=== PATIENT | female | born 1960 | race Caucasian/White ===

== ENCOUNTER 2023-03-14 08:18 | Outpatient (RCR) | payer BC, SELFPAY | END 2023-03-29 10:19 | disposition home or self-care (01) | PROVIDERS: Visit Provider Orthopaedic Surgery | DX: M17.11 Unilateral primary osteoarthritis, right knee (principal); M25.561 Pain in right knee; Z96.651 Presence of right artificial knee joint; Z51.89 Encounter for other specified aftercare; R53.1 Weakness | CPT/HCPCS: 97110; 97161 ==

== ENCOUNTER 2023-03-22 06:49 | Day surgery (SDC) | payer BC, SELFPAY ==
[2023-03-22] VITALS (27 sets, daily range): BP systolic 106–155; BP diastolic 53–90; PULSE 49–66; RESP 12–20; TEMP 36.3–36.8; O2SAT 93–98; BMI 45.2
[2023-03-22] MEDS: SCOPOLAMINE 1 MG/3 DAY PATCH 1 PATCH TRANSDERMA (07:25)
[2023-03-22] MEDS: LACTATED RINGERS 1000 ML 1,000 ML 100 ML IV ×2 (08:00→10:18)
[2023-03-22] MEDS: SODIUM CHLORIDE 0.9 % (FLUSH) 10 ML SYRINGE IVF (08:08)
[2023-03-22] MEDS: CELECOXIB 200 MG CAPSULE PO (08:13)
[2023-03-22] MEDS: ACETAMINOPHEN 500 MG TABLET 1000 MG PO ×3 (08:13→20:31)
[2023-03-22] MEDS: OXYCODONE (CR) 10 MG TAB.ER.12H PO (08:13)
[2023-03-22] MEDS: fentaNYL 100 MCG/2 ML inj IVP (08:35)
[2023-03-22] MEDS: MIDAZOLAM HCL 1 MG/ML inj IVP (08:35)
--- NOTE | 2023-03-22 08:39 | SUR.PREOP ---
TIME?OUT:?0830 right knee PT/RN/MDA?VERIFICATION?OF?SURGICAL?SITE,?PROCEDURE,?AND?CONSENT OBTAINED?PRIOR?TO?INVASIVE?PROCEDURE.
--- NOTE | 2023-03-22 08:49 | P.NB_ITS ---
Nerve Block Nerve Block Time Seen by Provider: 08:33 Date Seen: 03/22/23 Type of block requested by surgeon for post-operative analgesia: adductor canal Side: right Time out performed: Yes Verification of patient name: Yes Verification of date of : Yes Site marking: site marked Name of person performing procedure: Dion Continuous monitoring Was continuous monitoring of O2 sat, B/P, playground monitor, recorded every 15 minutes?: Yes Procedure Checklist: sterile prep, needles and gloves Ultrasound guided. Images saved: Yes Medications given in 5ml increments after negative aspiration: Ropivicaine %: 0.5 mL: 20 Needle gauge: 20 Decadron (mg): 10 Precedex (mcg): 25 Patient tolerated procedure well: Yes Additional comments: Needle noted adjacent to nerve Block Charges Block Charge (with Pro Fee): Femoral Nerve Use of Ultrasound Machine for Block: Yes- US Guidance/pain block
--- NOTE | 2023-03-22 08:49 | P.NB_ITS ---
Nerve Block Nerve Block Time Seen by Provider: 08:33 Date Seen: 03/22/23 Type of block requested by surgeon for post-operative analgesia: geniculars Side: right Time out performed: Yes Verification of patient name: Yes Verification of date of : Yes Site marking: site marked Name of person performing procedure: Dion Continuous monitoring Was continuous monitoring of O2 sat, B/P, syrup mixer assistant, recorded every 15 minutes?: Yes Procedure Checklist: sterile prep, needles and gloves Medications given in 5ml increments after negative aspiration: Ropivicaine %: 0.5 mL: 9 Needle gauge: 25 Patient tolerated procedure well: Yes Block Charges Block Charge (with Pro Fee): Genicular Nerve Block Use of Ultrasound Machine for Block: No
--- NOTE | 2023-03-22 08:50 | W.ANESCHARGE ---
Anesthesia Charges Start Date/Time Anesthesia Start Date: 03/22/23 Anesthesia Start Time: 09:44 Stop Date/Time Anesthesia Stop Date: 03/22/23 Anesthesia Stop Time: 12:06
[2023-03-22] MEDS: CEFAZOLIN 2 GM INJ IVP (10:10)
[2023-03-22] MEDS: TRANEXAMIC ACID 100 MG/ML INJ 1000 MG IV (10:15)
--- NOTE | 2023-03-22 11:26 | CRLHL7_ITS ---
For Patients: As a result of the Cures Act, medical imaging exams and procedure reports are released immediately into your electronic medical record. You may view this report before your referring provider. If you have questions, please contact your health care provider. Indication: post op TKA Technique: Two views right knee Findings/Impression: Hardware from a right total knee arthroplasty is in satisfactory position. Bone alignment is normal. No sign of acute fracture. Postop changes are within normal limits. Dictated by Sandor Brooks MD @ 03/22/2023 12:36:31 PM (Electronically Signed)
--- NOTE | 2023-03-22 11:27 | P.ORPRC_ITS ---
Procedure Note Date of procedure: 03/22/23 Procedure: PREOPERATIVE DIAGNOSIS: Right knee osteoarthritis POSTOPERATIVE DIAGNOSIS: Right knee osteoarthritis NAME OF OPERATION: Right total knee arthroplasty SURGEON: You Mac MD RELIGION INSTRUCTOR: ZITA Wilkinson ANESTHESIA: Spinal ESTIMATED BLOOD LOSS: 0 mL COMPLICATIONS: None SPECIMENS: None DRAINS: None PREOPERATIVE ANTIBIOTICS: Ancef 2 grams IMPLANTS: 1. J&J Attune # 5 posterior stabilized femur revision CRS femur with a 14 mm x 50 mm stem 2. # 5 fixed-bearing revision tibia with a 14 mm x 50 mm stem 3. #6 posterior stabilized, 5 mm fixed-bearing polyethylene 4. 38 patella INDICATIONS: The patient is a 63-year-old with a longstanding history of severe, unrelenting right knee pain secondary to end-stage (grade IV) right knee osteoarthritis. Despite appropriate nonoperative management, including activity modification, anti-inflammatories, [id number] pain medication, bracing, physical therapy, and injections they continue to have pain and disability. Operative intervention was offered. The risks, benefits and expected outcomes were discussed in detail. These included but were not limited to: Infection, bleeding, injury to blood vessel or nerve, venous thromboembolism. All questions were answered to their sati sfaction. Use of an assistant property manager was necessary throughout the case for patient positioning and safety, soft tissue retraction, and closure. PROCEDURE: Spinal anesthesia was administered. The patient was placed supine on the operating table. The assistant property manager made sure the patient was positioned appropriately. The lower extremity was prepped and draped in the usual sterile fashion. The limb was exsanguinated with the Tree bandage. The pneumatic tourniquet was inflated to 300 mmHg. A standard anterior incision was made with the knee in flexion. Subcutaneous dissection was sharply taken through fascial layer #1. Full-thickness medial and lateral flaps were elevated. The assistant property manager retracted the soft tissues and protected them throughout the case. A standard medial parapatellar approach was made. The patella was everted. The infrapatellar fat pad was preserved. The menisci and cruciate ligaments were sharply d?brided. Marginal osteophytes were d?brided with the rongeur. The drill was used to penetrate the femoral canal. The canal was aspirated and irrigated with pulse lavage. The intramedullary femoral guide was placed for a 5-degree valgus cut, removing 10 mm off the distal femur. The saw was used to make the cut. Whitesides line and the trans epicondylar axis were marked. The femoral sizing guide was pinned onto the distal femur. Three degrees of external rotation nicely parallels the transepicondylar axis. Pins were placed for posterior referencing. The four-in-one cutting guide was pinned onto the distal femur. The anterior, posterior, and chamfer cuts were made. The assistant property manager protected the collateral ligaments. Given the patient's BMI of 45 and valgus malalignment, with valgus instability stems on both sides were planned. Therefore, the femoral trial component was placed. The box cutting guide was placed on it. The box cuts were made. The drill for the stem were used x2. The trial stem was placed on the trial and was an excellent fit. Attention was then turned to the proximal tibia. The extramedullary tibial guide was placed for a neutral varus/valgus cut with 5 degrees of posterior slope, removing 2 mm based off the medial tibial surface. The assistant property manager protected the collateral ligaments and the neurovascular bundle. The saw was used to make the cut. Trial components were placed. The knee was nicely balanced in both flexion and extension. The trial components were removed. The tray was placed in appropriate rotation, parallel to our tibial cutting pins. It was pinned by the assistant property manager. The drill x2 were used. The punch was used. The tray was removed. The punch was used again. Attention was then turned to the patella. Pokagon patellar thickness was 23 mm. The lobster claw resection guide was used with the 9.5 mm pinky. The saw was used to make the cut. Drill holes were made by the assistant property manager. The trial was placed and was an excellent fit. Cancellous surfaces were irrigated with pulse lavage and thoroughly dried by the assistant property manager. We cemented the tibial component, then the femoral component. Doughy cement was placed around each stem. We impacted the 5 mm polyethylene onto the tibial tray. The knee was brought into full extension. We then cemented the patellar component. Excessive cement was removed. The cement was allowed to harden. The knee was taken through a range of motion and was found to be nicely balanced in both flexion and extension. The patella tracks centrally. The assistant property manager did a three minute dilute Betadine solution soak. The assistant property manager irrigated the wound with 3 liters of normal saline via pulse lavage. The assistant property manager reapproximated the extensor mechanism with #1 Vicryl in an interrupted [id number]-[id number] fashion. The assistant property manager then ran the extensor mechanism with a #1 PDO Stratafix. The assistant property manager closed the subcutaneous tissues with a 3-0 Stratafix and the skin with a running 3-0 Stratafix in a subcuticular fashion. Glue was used to seal the skin. The assistant property manager placed a dry dressing, BALAJI stocking, and Polar Care. Sponge and needle counts were correct x2. The patient tolerated the procedure well. There were no apparent complications. They were carefully transferred to the hospital bed and taken to the postanesthesia care unit in satisfactory condition. PLAN: The patient will be mobilized with physical therapy. Aspirin will be used for DVT prophylaxis. They will be discharged to home once medically appropriate.
--- NOTE | 2023-03-22 12:04 | W.ANESCHARGE ---
Anesthesia Charges Start Date/Time Anesthesia Start Date: 03/22/23 Anesthesia Start Time: 09:44 Stop Date/Time Anesthesia Stop Date: 03/22/23 Anesthesia Stop Time: 12:06
[2023-03-22] MEDS: OXYCODONE 5 MG TABLET PO ×2 (16:48→20:30)
[2023-03-22] MEDS: ONDANSETRON 2 MG/ML inj 4 MG IVP (16:49)
[2023-03-22] MEDS: CEFAZOLIN 2 GM in 0.9 % SODIUM CHLORIDE Mini-bag 100 ML IVPB (18:42)
--- NOTE | 2023-03-22 19:58 | PM.IMCN1 ---
Date of Consult Patient: Cecilio Patient Consult date: 03/22/23 Requesting Physician: Orthopedics Primary Care Provider: Not a Local Provider Consult Narrative Reason for consult: Narrative: HOSPITALIST CONSULT Procedure: Right total knee arthroplasty The hospital medicine team was asked by the orthopedic surgery team to manage the patient's coagulopathy-factor 5 Leiden, hypertension, morbid obesity, type 2 diabetes, chronic anxiety. There have been no perioperative complications. Updated and reviewed the active medical problems, past medical history, past surgical history, social history, allergies and medications in our electronic EMR. PHYSICAL EXAM: CODE STATUS: FULL CODE CONSTITUTIONAL: Conversive, good historian. A/O. Knows setting and context. VITAL SIGNS: see record. HEENT: Normocephalic, atraumatic. PERRL, EOMI, conjunctivae pink, no scleral icterus. Ears and nose externally normal. Pharynx normal. NECK: No JVD. No carotid bruit, no thyromegaly, no adenopathy. CHEST: Clear to auscultation bilaterally HEART: S1 and S2 normal. ABDOMEN: Flat, soft, nontender. Normal bowel sounds. Moderately obese. EXTREMITIES: No edema. MUSCULOSKELETAL: Right knee has surgical dressing that is clean dry and intact. NEURO: Cranial nerves intact. Mentation normal. Normal affect. SKIN: No rashes, petechiae, concerning changes PSYCHIATRIC: Mentation normal. INVESTIGATIONS: EMR Reviewed; Pre-OP Reviewed DISPOSITION: DVT: Xarelto 10mg 10-14 days, aspirin 81mg bid to complete 35 days prophylaxis GI: PO intake [facility] Medical History (Updated 03/22/23 @ 20:53 by Kathia Baltazar MD) Type 2 diabetes mellitus ?E11.9 - Type 2 diabetes mellitus without complications (ICD-10) Postoperative nausea and vomiting ?R11.2 - Nausea with vomiting, unspecified (ICD-10) ?Z98.890 - Other specified postprocedural states (ICD-10) History of trigger finger ?Z87.39 - Personal history of other diseases of the musculoskeletal system and connective tissue (ICD-10) Raynauds disease ?I73.00 - Raynaud's syndrome without gangrene (ICD-10) Degenerative joint disease (DJD) of hip ?M16.9 - Osteoarthritis of hip, unspecified (ICD-10) Mastoiditis ?H70.90 - Unspecified mastoiditis, unspecified ear (ICD-10) Encephalocele ?Q01.9 - Encephalocele, unspecified (ICD-10) Seasonal allergies ?J30.2 - Other seasonal allergic rhinitis (ICD-10) Hypertension ?I10 - Essential (primary) hypertension (ICD-10) Surgical History (Updated 03/22/23 @ 20:55 by Kathia Baltazar MD) Status post right knee replacement ?Z96.651 - Presence of right artificial knee joint (ICD-10) Previous section (1987) ?Z98.891 - History of uterine scar from previous surgery (ICD-10) History of carpal tunnel surgery of left wrist (09/04/01) ?Z98.890 - Other specified postprocedural states (ICD-10) History of carpal tunnel surgery of right wrist (06/26/01) ?Z98.890 - Other specified postprocedural states (ICD-10) Family History (Updated 03/06/23 @ 08:45 by Sharon Muro RN) Daughter Bleeding disorder Son Bleeding disorder Daughter Bleeding disorder Sister Bleeding disorder Colon cancer High blood pressure Brother Bleeding disorder Non Hodgkin's lymphoma Father Pancreatic cancer High blood pressure Diabetes Mother High blood pressure CHF (congestive heart failure) Social History (Updated 02/21/23 @ 15:26 by Rhona Enriquez ~ [facility], [facility]) Smoking Status: Current every day smoker What tobacco products do you use: cigarettes Years smoked: 40 Do you use any of these nicotine containing products: None Second hand tobacco smoke exposure: No How often do you have a drink containing alcohol: monthly or less Alcohol type: hard liquor How many standard drinks containing alcohol do you have on a typical day: 1 or 2 How often do you have six or more drinks on one occasion: Never AUDIT-C Alcohol total score: 1 Non-prescribed substance use: denies use Caffeine: Yes (coffee, 4-5 cups/AM) Meds Home Medications and Allergies Home Medications Medication Instructions Recorded Confirmed Type atorvastatin 20 mg tablet 20 mg PO DAILY 02/21/23 03/22/23 History buspirone 10 mg tablet 10 mg PO BID 02/21/23 03/22/23 History duloxetine 30 mg capsule,delayed 30 mg PO DAILY 02/21/23 03/22/23 History release duloxetine 60 mg capsule,delayed 60 mg PO QDAY 02/21/23 03/22/23 History release (Cymbalta) epinephrine 0.3 mg/0.3 mL IM 02/21/23 02/21/23 History injection, auto-injector fluticasone propionate 50 2 spray intranasal DAILY 02/21/23 03/22/23 History mcg/actuation nasal spray,suspension hydrochlorothiazide 25 mg tablet 25 mg PO DAILY 02/21/23 03/22/23 History meloxicam 15 mg tablet 15 mg PO DAILY 02/21/23 03/22/23 History metoprolol tartrate 50 mg tablet 50 mg PO DAILY 02/21/23 03/22/23 History montelukast 10 mg tablet 10 mg PO DAILY 02/21/23 03/22/23 History potassium chloride 20 mEq 20 meq PO DAILY 02/21/23 03/22/23 History tablet,extended release topiramate 50 mg tablet (Topamax) 75 mg PO BID 02/21/23 03/22/23 History Allergies Allergy/AdvReac Type Severity Reaction Status Date / Time hydrocodone Allergy Nausea Verified 02/21/23 15:22 Sulfa (Sulfonamide Allergy Hives Verified 02/21/23 15:22 Antibiotics) Exam Const: Vital Signs, click to edit/add: Vital Signs - 24 hr 03/22/23 07:47 03/22/23 08:30 03/22/23 08:41 Temperature 98.3 F Pulse Rate 59 L 57 L 60 Respiratory Rate 20 20 20 Blood Pressure 144/90 H 155/85 H 150/88 H Pulse Oximetry 96 97 98 Oxygen Delivery Me thod Room Air Nasal Cannula Room Air Oxygen Flow Rate 3 03/22/23 08:46 03/22/23 12:01 03/22/23 12:02 Temperature Pulse Rate 63 56 L 54 L Respiratory Rate 20 Blood Pressure 109/81 106/73 Pulse Oximetry 98 96 97 Oxygen Delivery Me thod Room Air Oxygen Flow Rate 3 03/22/23 12:05 03/22/23 12:06 03/22/23 12:07 Temperature 97.5 F L Pulse Rate 51 L 53 L 50 L Respiratory Rate 12 Blood Pressure 109/66 109/66 Pulse Oximetry 96 95 95 Oxygen Delivery Me thod Room Air Oxygen Flow Rate 03/22/23 12:07 03/22/23 12:10 03/22/23 12:11 Temperature Pulse Rate 51 L 51 L 49 L Respiratory Rate Blood Pressure 113/68 Pulse Oximetry 96 96 96 Oxygen Delivery Me thod Oxygen Flow Rate 03/22/23 12:15 03/22/23 12:16 03/22/23 12:20 Temperature Pulse Rate 50 L 49 L 49 L Respiratory Rate Blood Pressure 121/68 Pulse Oximetry 96 96 95 Oxygen Delivery Me thod Oxygen Flow Rate 03/22/23 12:21 03/22/23 12:25 03/22/23 12:26 Temperature Pulse Rate 49 L 49 L 49 L Respiratory Rate Blood Pressure 114/65 126/70 Pulse Oximetry 95 95 94 Oxygen Delivery Me thod Oxygen Flow Rate 03/22/23 12:30 03/22/23 12:32 03/22/23 12:33 Temperature Pulse Rate 49 L 51 L 49 L Respiratory Rate Blood Pressure 120/70 Pulse Oximetry 94 94 94 Oxygen Delivery Me thod Oxygen Flow Rate 03/22/23 12:35 03/22/23 12:36 03/22/23 13:00 Temperature Pulse Rate 50 L 50 L Respiratory Rate Blood Pressure 114/83 Pulse Oximetry 93 94 94 Oxygen Delivery Me thod Oxygen Flow Rate Assessment and Plan Assessment and plan (1) Status post right knee replacement: Problem comment: 03/22/23. [facility] medicine team is happy to follow patient through to discharge. We will hold antihypertensives as appropriate. I recommend starting a DOAC within 6-12 hours of surgery given FVL status, family hx of VTE, morbid obesity and mobility restrictions/age/comorbidities. I recommend continuing this for 10-14 days and completing a 35 day course of VTE ppx with aspirin 81mg BID. Status: Acute (2) Type 2 diabetes mellitus: Problem comment: We will add sliding scale coverage with Accu-Cheks. No home anti-hyperglycemic medications. No insulin. Status: Acute (3) Hypertension: Problem comment: Hydrochlorothiazide, Lopressor potassium -holding given blood pressure and pulse postoperatively Status: Acute (4) Factor 5 Leiden mutation, heterozygous: Problem comment: Given her FVL (heterozygous), family history (daughter and brother with DVT), high risk surgery, age/weight/mobility issues I recommend Xarelto 10mg daily for 10-14 days followed by aspirin 81mg BID for the rest of the 30 days postoperatively. From [facility] Status: Acute (5) Chronic anxiety: Problem comment: Papa Goodrich Continue home meds Status: Acute (6) Obesity: Status: Acute
--- NOTE | 2023-03-22 20:11 | PC.NURSE ---
Nursing Care Hours: [id number] Pt this shift arrived from PACU awake, alert, and oriented. No c/o nausea this shift. Zofran given with first dose of oxycodone as preventative. No complications. CMS intact. Dressing CDI, ice on. VSS. Up to chair with PT and 1 assist/ SB with walker up to bathroom. Pain controlled at 2-3 per eMAR. SL, pt drinking sufficiently.
[2023-03-22] MEDS: SENNOSIDES 1 TAB TABLET 2 TAB PO (20:31)
[2023-03-22] MEDS: BUSPIRONE 10 MG TABLET PO (22:01)
[2023-03-22] MEDS: RIVAROXABAN 10 MG TABLET PO (22:01)
[2023-03-22] MEDS: TOPIRAMATE 50 MG TABLET 75 MG PO (22:02)
[2023-03-23] MEDS: ACETAMINOPHEN 500 MG TABLET 1000 MG PO ×2 (02:45→08:30)
[2023-03-23] MEDS: OXYCODONE 5 MG TABLET PO ×2 (02:46→08:30)
[2023-03-23] MEDS: CEFAZOLIN 2 GM in 0.9 % SODIUM CHLORIDE Mini-bag 100 ML IVPB (02:47)
[2023-03-23 03:00] VITALS: BP 146/72; PULSE 55; RESP 16; TEMP 35.5; O2SAT 92
--- NOTE | 2023-03-23 05:46 | PC.NURSE ---
[id number] Shift Summary? [address]?Right Total Knee Arthroplasty? Hx: DM2, coagulopathy-factor 5 Leiden, morbid obesity, chronic anxiety,?Raynaud's disease, DJD of hip, Mastoiditis, Encephalocele, HTN? Pt did excellent overnight. Up to BR several times with SBA and walker. Good I/Os, no BM yet but given senna. PIV SLed, IV abx 2/2 given. Mild to moderate knee pain managed with 5-10mg of oxy and Tylenol. Kyro Cuff in place. On room air, vitals stable. Dressing is CDI. Given 10mg Eliquis (factor 5 clotting factor). Glucose check overnight for 143, does not normally take insulin and says she would not like any this morning. No nausea/vomiting and diet advanced. Plans to DC home today pending therapies. ?
[2023-03-23 07:00] VITALS: BP 122/57; PULSE 55; RESP 20; TEMP 36.6; O2SAT 95
[2023-03-23 08:16] LABS: Basophils Percent Auto 0.1 % (0.0-3.0); Eosinophils Percent Auto 0.1 % (0.0-7.0); Hemoglobin* 12.9 gm/dL (12.0-16.0); Immature Granulocytes Pct Auto 0.5 %; Lymphocytes Percent Auto 7.5 % (20-44); Mean Corpuscular HGB Conc 32 gm/dL (32-36); Mean Corpuscular Hemoglobin 29 pg (26-34); Mean Corpuscular Volume 92 fL (80-100); Monocytes Percent Auto 5.9 % (0.0-11.0); Neutrophils Percent Auto 85.9 % (42.0-72.0); Platelet Count* 198 K/uL (140-440); RDW Coefficient of Variation % 12.9 % (11.5-15.5); Red Blood Count 4.47 m/uL (4.00-5.20); White Blood Count* 18.41 K/uL (4.50-11.00)
[2023-03-23 08:19] LABS: Slide Review Reflex No
--- NOTE | 2023-03-23 08:22 | P.ORPN_ITS ---
Subjective Subjective Time Seen by Provider: 07:30 Date Seen: 03/23/23 Principal diagnosis: Status post right knee replacement Interval history: Yaritza is comfortable this morning. She has ambulated to the restroom and back to bed or chair. She will be discharging to home today. Ortho Exam Narrative Exam Narrative: Alert and oriented x3. Patient is in no acute distress. Converses without labored breathing. Hearing is grossly intact. Ambulates with a walker. Examination of the right lower extremity shows dressing is intact. No erythema or warmth or sign of infection. Mild edema. Mild effusion. Able to straight leg raise. CMS intact right lower extremity. Calf is soft and nontender. Const Vital Signs, click to edit/add: Vital Signs - 24 hr 03/22/23 08:30 03/22/23 08:41 03/22/23 08:46 Temperature Pulse Rate 57 L 60 63 Pulse Rate [Left Pulse Oximeter] Respiratory Rate 20 20 20 Blood Pressure 155/85 H 150/88 H 109/81 Blood Pressure [Right Arm] Pulse Oximetry 97 98 98 Oxygen Delivery Method Nasal Cannula Room Air Room Air Oxygen Flow Rate 3 3 03/22/23 12:01 03/22/23 12:02 03/22/23 12:05 Temperature Pulse Rate 56 L 54 L 51 L Pulse Rate [Left Pulse Oximeter] Respiratory Rate Blood Pressure 106/73 Blood Pressure [Right Arm] Pulse Oximetry 96 97 96 Oxygen Delivery Method Oxygen Flow Rate 03/22/23 12:06 03/22/23 12:07 03/22/23 12:07 Temperature 97.5 F L Pulse Rate 53 L 50 L 51 L Pulse Rate [Left Pulse Oximeter] Respiratory Rate 12 Blood Pressure 109/66 109/66 Blood Pressure [Right Arm] Pulse Oximetry 95 95 96 Oxygen Delivery Method Room Air Oxygen Flow Rate 03/22/23 12:10 03/22/23 12:11 03/22/23 12:15 Temperature Pulse Rate 51 L 49 L 50 L Pulse Rate [Left Pulse Oximeter] Respiratory Rate Blood Pressure 113/68 Blood Pressure [Right Arm] Pulse Oximetry 96 96 96 Oxygen Delivery Method Oxygen Flow Rate 03/22/23 12:16 03/22/23 12:20 03/22/23 12:21 Temperature Pulse Rate 49 L 49 L 49 L Pulse Rate [Left Pulse Oximeter] Respiratory Rate Blood Pressure 121/68 114/65 Blood Pressure [Right Arm] Pulse Oximetry 96 95 95 Oxygen Delivery Method Oxygen Flow Rate 03/22/23 12:25 03/22/23 12:26 03/22/23 12:30 Temperature Pulse Rate 49 L 49 L 49 L Pulse Rate [Left Pulse Oximeter] Respiratory Rate Blood Pressure 126/70 Blood Pressure [Right Arm] Pulse Oximetry 95 94 94 Oxygen Delivery Method Oxygen Flow Rate 03/22/23 12:32 03/22/23 12:33 03/22/23 12:35 Temperature Pulse Rate 51 L 49 L 50 L Pulse Rate [Left Pulse Oximeter] Respiratory Rate Blood Pressure 120/70 Blood Pressure [Right Arm] Pulse Oximetry 94 94 93 Oxygen Delivery Method Oxygen Flow Rate 03/22/23 12:36 03/22/23 13:00 03/22/23 13:00 Temperature 97.6 F Pulse Rate 50 L Pulse Rate [Left Pulse Oximeter] 49 L Respiratory Rate 16 Blood Pressure 114/83 Blood Pressure [Right Arm] 108/70 Pulse Oximetry 94 94 94 Oxygen Delivery Method Room Air Oxygen Flow Rate 03/22/23 13:15 03/22/23 13:30 03/22/23 20:20 Temperature 97.3 F L Pulse Rate 60 Pulse Rate [Left Pulse Oximeter] 52 L 53 L Respiratory Rate 18 18 18 Blood Pressure 125/74 Blood Pressure [Right Arm] 108/53 L 117/57 L Pulse Oximetry 94 95 94 Oxygen Delivery Method Room Air Room Air Room Air Oxygen Flow Rate 03/23/23 03:00 03/23/23 07:00 03/23/23 07:00 Temperature 96 F L 97.8 F Pulse Rate 55 L 55 L Pulse Rate [Left Pulse Oximeter] Respiratory Rate 16 20 Blood Pressure 146/72 H 122/57 L Blood Pressure [Right Arm] Pulse Oximetry 92 95 95 Oxygen Delivery Method Room Air Room Air Oxygen Flow Rate Assessment and Plan Assessment and plan (1) Status post right knee replacement: Problem details: 03/22/23. [facility] medicine team is happy to follow patient through to discharge. We will hold antihypertensives as appropriate. I recommend starting a DOAC within 6-12 hours of surgery given FVL status, family hx of VTE, morbid obesity and mobility restrictions/age/comorbidities. I recommend continuing this for 10-14 days and completing a 35 day course of VTE ppx with aspirin 81mg BID. Status: Acute Assessment and Plan: Plan for discharge is today to home if they meet discharge criteria. DVT prophylaxis includes Xarelto 10 mg daily for 14 days, then aspirin 81 mg b.i.d. for 21 days., Jorge stockings x1 month may remove for 1 hr per day, frequent ambulation Remove dressing in 1 week. Observe wound and phone Orthopedics with any questions or concerns Return to clinic in 1 week for a wound check Return to clinic in [address] Mac Minimize narcotic use. Wean off and discontinue soon as possible. Activities as tolerated. No strenuous activity. Outpatient physical therapy as scheduled. Ice and elevate the operative extremity. No restriction on ice. (2) Type 2 diabetes mellitus: Problem details: We will add sliding scale coverage with Accu-Cheks. No home anti-hyperglycemic medications. No insulin. Status: Acute (3) Hypertension: Problem details: Hydrochlorothiazide, Lopressor potassium -holding given blood pressure and pulse postoperatively Status: Acute (4) Factor 5 Leiden mutation, heterozygous: Problem details: Given her FVL (heterozygous), family history (daughter and brother with DVT), high risk surgery, age/weight/mobility issues I recommend Xarelto 10mg daily for 10-14 days followed by aspirin 81mg BID for the rest of the 30 days postoperatively. From [facility] Status: Acute (5) Chronic anxiety: Problem details: Papa Goodrich Continue home meds Status: Acute (6) Obesity: Status: Acute
[2023-03-23 08:29] LABS: Potassium* 3.5 mmol/L (3.6-5.1); Sodium* 137 mmol/L (135-149)
[2023-03-23 08:30] LABS: INR 1.13 (0.91-1.10); Prothrombin Time 15.1 Seconds
[2023-03-23 08:32] LABS: Creatinine* 0.7 mg/dL (0.5-1.5); Est. Creatinine Clearance* 43.45; Estimated Glomerular Filt Rate 97 ml/min
[2023-03-23 08:33] LABS: Blood Urea Nitrogen* 13 mg/dL (7-30)
[2023-03-23] MEDS: POTASSIUM CHLORIDE 10 MEQ CAPSULE ER 20 MEQ PO (08:40)
[2023-03-23] MEDS: ATORVASTATIN 10 MG TABLET 20 MG PO (08:40)
[2023-03-23] MEDS: MONTELUKAST 10 MG TABLET PO (08:40)
[2023-03-23] MEDS: DULOXETINE 30 MG CAPSULE DR PO (08:40)
[2023-03-23] MEDS: BUSPIRONE 10 MG TABLET PO (08:40)
[2023-03-23] MEDS: RIVAROXABAN 10 MG TABLET PO (08:41)
[2023-03-23] MEDS: SENNOSIDES 1 TAB TABLET 2 TAB PO (08:46)
== END 2023-03-23 10:45 | disposition home or self-care (01) ==
LOC: OR 06:51 → MEDSURG 06:55
PROVIDERS: Visit Provider Orthopaedic Surgery
PROC: (CPT 27447; principal; 2023-03-22 09:15)
DX: M17.11 Unilateral primary osteoarthritis, right knee (principal); G89.18 Other acute postprocedural pain; I10 Essential (primary) hypertension; E66.01 Morbid (severe) obesity due to excess calories; D68.51 Activated protein C resistance; E11.9 Type 2 diabetes mellitus without complications; F41.9 Anxiety disorder, unspecified; F17.210 Nicotine dependence, cigarettes, uncomplicated; Z68.42 Body mass index [BMI] 45.0-49.9, adult
CPT/HCPCS: 27447; 01402; 36415; 64447; 64454; 73560; 76942; 82565; 82962; 84132; 84295; 84520; 85025; 85610; 97110; 97116; 97161; 97165; 97530; 97535; A9270; C1776; J0690; J1100; J2250; J2405; J2704; J2795; J3010; J7120